=== PATIENT | female | born 1965 | race Hispanic/Latino ===

== ENCOUNTER 2017-12-23 15:39 | Inpatient (IN) | payer BC ==
[2017-12-23] VITALS (18 sets, daily range): BP systolic 112–158; BP diastolic 41–84
[~2017-12-23] VITALS: Ht 157.5 cm; Wt 72.5 kg
[2017-12-23] MEDS ORDERED: ONDANSETRON HCL MDV 20ML 2 MG/ML VIAL IVP PRN (17:15)
[2017-12-23] MEDS ORDERED: ACETAMINOPHEN 325 MG TAB PO PRN (17:15)
[2017-12-23] MEDS ORDERED: GLUCAGON 1MG KIT 1 MG ML IM PRN (17:15)
[2017-12-23] MEDS ORDERED: DEXTROSE 50%-WATER 50 ML DISP.SYRIN IV PRN (17:15)
[2017-12-23] MEDS ORDERED: INSU100V12 SQ (17:36)
[2017-12-23] MEDS ORDERED: COSO10OS OD (17:36)
[2017-12-23] MEDS ORDERED: OMEP40CA37 PO (17:36)
[2017-12-23] MEDS ORDERED: ATOR40TA71 PO (17:36)
[2017-12-23] MEDS ORDERED: INSU100I3 SQ (17:36)
[2017-12-23] MEDS ORDERED: IRON1CAP28 PO (17:36)
[2017-12-23] MEDS ORDERED: NEPT50 PO (17:36)
[2017-12-23] MEDS ORDERED: SODI15DR8 OS (17:36)
[2017-12-23] MEDS ORDERED: CARV12.511 PO (17:36)
[2017-12-23] MEDS ORDERED: PREDAOS OS (17:36)
[2017-12-23] MEDS ORDERED: XALA2.5OS OD (17:36)
[2017-12-23] MEDS ORDERED: FURO40TA5 PO (17:36)
[2017-12-23] MEDS ORDERED: DOCU-116 PO (17:36)
[2017-12-23] MEDS ORDERED: LISI-613 PO (17:36)
[2017-12-23 18:11] LABS: BASOPHILS % (AUTO) 0.4 % (0.0-5.0); HEMATOCRIT 26.4 % (36-48); LYMPHOCYTES % (AUTO) 10.1 % (21.0-51.0); MEAN CORPUSCULAR HEMOGLOBIN 29.9 pg (27.0-33.0); MEAN CORPUSCULAR HGB CONC 31.7 g/dL (32.0-36.0); MEAN CORPUSCULAR VOLUME 94.4 fL (79-99); MONOCYTES % (AUTO) 5.9 % (3.0-13.0); NEUTROPHILS % (AUTO) 83.6 % (40.0-77.0); NUCLEATED RED BLOOD CELLS 0.6 % (0.0-0.19); PLATELET COUNT (AUTO) 225 K/uL (130-400); RED CELL DISTRIBUTION WIDTH 16.9 % (11.0-15.5); WHITE BLOOD COUNT (AUTO) 7.4 K/uL (4.8-10.8)
[2017-12-23 18:19] LABS: INR 1.02 (0.85-1.15); PARTIAL THROMBOPLASTIN TIME 26.8 SEC (26.3-35.5); PROTHROMBIN TIME 10.7 SEC (9.6-11.6)
[2017-12-23 18:25] LABS: ALANINE AMINOTRANSFERASE 16 U/L (12-78); ALBUMIN 2.1 g/dL (3.5-5.0); ASPARTATE AMINOTRANSFERASE 23 U/L (10-37); BILIRUBIN,TOTAL 0.2 mg/dL (0.2-1.0); CARBON DIOXIDE 14 mmol/L (21-32); CHLORIDE 109 mmol/L (101-111); CREATININE 6.2 mg/dL (0.5-1.5); GLOMERULAR FILTR. RATE CALC 8 mL/min (>60); GLUCOSE,RANDOM 140 mg/dL (70-105); PHOSPHORUS 8.9 mg/dL (2.5-4.9); POTASSIUM 4.9 mmol/L (3.5-5.1); SODIUM SERUM 143 mmol/L (136-145); TOTAL PROTEIN, SERUM 5.8 g/dL (6.0-8.3)
[2017-12-23 18:29] LABS: UREA NITROGEN, BLOOD 126 mg/dL (7-18)
[2017-12-23 18:33] LABS: CREATINE KINASE MB 35.8 ng/mL (0.5-3.6); TROPONIN I 0.15 ng/mL (0.00-0.06)
[2017-12-23 18:36] LABS: % IRON SATURATION 18.5 % (22-44); FERRITIN 201 ng/mL (15-150); IRON, SERUM 45 mcg/dL (50-170); TOTAL IRON BINDING CAPACITY 243 mcg/dL (250-450)
[2017-12-23 18:53] LABS: RETICULOCYTE % (AUTO) 2.75 % (0.42-2.23)
[2017-12-23] MEDS ORDERED: VANCOMYCIN PROTOCOL PER PHARMACY IV SCH (19:45)
[2017-12-23] MEDS: ASPIRIN 325MG EC TAB 325 MG TABLET.DR PO SCH (19:49)
[2017-12-23] MEDS ORDERED: VANCOMYCIN 1.25 GM in SODIUM CHLORIDE 0.9% 250 ML IV SCH (20:00)
[2017-12-23] MEDS ORDERED: COMPOUND IV REFRIGERATED 1 EACH IVSOLN MISC PRN (20:15)
[2017-12-23] MEDS: FOLIC ACID/VITAMIN B COMP W-C 1 MG CAPSULE PO SCH (20:51)
[2017-12-23] MEDS: SODIUM BICARBONATE 650 MG TAB PO SCH (20:52)
[2017-12-23] MEDS: DOCUSATE SODIUM 100 MG CAP PO SCH (20:52)
[2017-12-23] MEDS: INSULIN HUMULIN R 100 UNIT/ML 3ML SQ SCH (21:00)
[2017-12-23] MEDS: METHAZOLAMIDE 50 MG PO SCH (21:00)
[2017-12-23] MEDS: DORZOLAMIDE HCL/TIMOLOL MALEAT DROPS 10 ML BOTTLE OD SCH (21:22)
[2017-12-23] MEDS: LATANOPROST 2.5 ML DROPS OD SCH (21:32)
[2017-12-23 21:35] LABS: APPEARANCE,URINE Turbid (CLEAR); BILIRUBIN,URINE Small (NEGATIVE); COLOR,URINE Dark Yellow (YELLOW); GLUCOSE, URINE (UA) TRACE mg/dL (NEGATIVE); KETONES,URINE Trace mg/dL (NEGATIVE); LEUKOCYTE ESTERASE ,URINE Negative (NEGATIVE); NITRATE,URINE Negative (NEGATIVE); OCCULT BLOOD,URINE Negative (NEGATIVE); PROTEIN,URINE >=1000 (NEGATIVE); UROBILINOGEN,URINE 0.2 mg/dL (0.2-1.0)
[2017-12-23] MEDS: PREDNISOLONE ACETATE 1% 5ML DROPS.SUSP OS SCH (21:40)
[2017-12-23] MEDS: FUROSEMIDE 10 MG/ML 4ML VIAL IV SCH (21:43)
[2017-12-23] MEDS: ZOSYN 3.375GM+NS 50ML 50 ML IV SCH (21:47)
[2017-12-23] MEDS: SODIUM CHLORIDE 5% 15 ML OPHTH SOLN OS SCH (21:47)
[2017-12-23 21:55] LABS: AMORPHOUS SEDIMENT,UR Moderate /LPF (None Seen); BACTERIA,URINE Many /HPF (None Seen); RBC,URINE None Seen /HPF (0-1)
[2017-12-24] VITALS (32 sets, daily range): BP systolic 102–189; BP diastolic 37–102
[2017-12-24 00:22] LABS: CREATINE KINASE MB 33.1 ng/mL (0.5-3.6); TROPONIN I 0.16 ng/mL (0.00-0.06)
[2017-12-24 04:47] LABS: HEMATOCRIT 27.1 % (36-48); MEAN CORPUSCULAR HEMOGLOBIN 29.7 pg (27.0-33.0); MEAN CORPUSCULAR HGB CONC 30.8 g/dL (32.0-36.0); MEAN CORPUSCULAR VOLUME 96.6 fL (79-99); NUCLEATED RED BLOOD CELLS 0.7 % (0.0-0.19); PLATELET COUNT (AUTO) 204 K/uL (130-400); RED BLOOD CELL COUNT(AUTO) 2.81 MIL/uL (4.00-5.50); RED CELL DISTRIBUTION WIDTH 17.6 % (11.0-15.5); WHITE BLOOD COUNT (AUTO) 10.4 K/uL (4.8-10.8)
[2017-12-24 04:53] LABS: CREATININE 6.2 mg/dL (0.5-1.5); MAGNESIUM 2.3 mg/dL (1.80-2.40); PHOSPHORUS 9.1 mg/dL (2.5-4.9); URIC ACID 8.3 mg/dL (2.6-7.2)
[2017-12-24 05:13] LABS: % IRON SATURATION 15.9 % (22-44)
[2017-12-24] MEDS: DOPAMINE 800MG/D5 250ML 250 ML IV PRN (06:32)
[2017-12-24] MEDS: INSULIN HUMULIN R 100 UNIT/ML 3ML SQ SCH ×4 (06:32→20:18)
[2017-12-24] MEDS: ATORVASTATIN CALCIUM 40 MG TABLET PO SCH (08:44)
[2017-12-24] MEDS: DOCUSATE SODIUM 100 MG CAP PO SCH ×2 (08:44→19:46)
[2017-12-24] MEDS: FUROSEMIDE 10 MG/ML 4ML VIAL IV SCH ×2 (08:44→19:47)
[2017-12-24] MEDS: ZOSYN 3.375GM+NS 50ML 50 ML IV SCH ×2 (08:44→19:45)
[2017-12-24] MEDS: PANTOPRAZOLE SODIUM 40 MG TABLET.DR PO SCH (08:45)
[2017-12-24] MEDS: SODIUM BICARBONATE 650 MG TAB PO SCH ×2 (08:45→19:47)
[2017-12-24] MEDS: FOLIC ACID/VITAMIN B COMP W-C 1 MG CAPSULE PO SCH (08:45)
[2017-12-24] MEDS: ASPIRIN 325MG EC TAB 325 MG TABLET.DR PO SCH (08:45)
[2017-12-24] MEDS: IRON FUM PO SCH (09:00)
[2017-12-24] MEDS: [UNRECOGNIZED DRUG - OTHER] PO SCH (09:00)
[2017-12-24] MEDS: METHAZOLAMIDE 50 MG PO SCH ×2 (09:00→19:46)
[2017-12-24] MEDS: VIT B PO SCH (09:00)
[2017-12-24] MEDS: C NO 9 PO SCH (09:00)
[2017-12-24] MEDS: SODIUM CHLORIDE 5% 15 ML OPHTH SOLN OS SCH ×2 (09:12→19:45)
[2017-12-24] MEDS: PREDNISOLONE ACETATE 1% 5ML DROPS.SUSP OS SCH ×2 (09:12→19:46)
[2017-12-24] MEDS: LATANOPROST 2.5 ML DROPS OD SCH ×2 (09:12→19:46)
[2017-12-24] MEDS: DORZOLAMIDE HCL/TIMOLOL MALEAT DROPS 10 ML BOTTLE OD SCH ×2 (09:12→19:45)
[2017-12-24] MEDS ORDERED: RENAL DOSE IV PRN (13:30)
[2017-12-24 15:41] LABS: ABG BASE EXCESS -15.3 mmol/L (-2.0-3.0); ABG HCO3 11.6 mmol/L (21.0-28.0); ABG OXYGEN SATURATION 95.8 % (95.0-99.0); ABG PCO2 31 mmHg (32-45)
[2017-12-24] MEDS: CALCIUM ACETATE 667 MG CAPSULE PO SCH (16:45)
[2017-12-24] MEDS ORDERED: COMPOUND IV MISC 1 EACH IVSOLN MISC PRN (16:45)
[2017-12-24] MEDS: SODIUM BICARB 8.4% 50ML SYRING 200 MEQ in DEXTROSE 5%-WATER 800 ML IV SCH (17:43)
[2017-12-25] VITALS (28 sets, daily range): BP systolic 134–189; BP diastolic 47–95
[2017-12-25 04:41] LABS: HEMATOCRIT 25.4 % (36-48); MEAN CORPUSCULAR HEMOGLOBIN 29.4 pg (27.0-33.0); MEAN CORPUSCULAR HGB CONC 31.9 g/dL (32.0-36.0); MEAN CORPUSCULAR VOLUME 92.2 fL (79-99); NUCLEATED RED BLOOD CELLS 0.5 % (0.0-0.19); PLATELET COUNT (AUTO) 251 K/uL (130-400); RED BLOOD CELL COUNT(AUTO) 2.75 MIL/uL (4.00-5.50); RED CELL DISTRIBUTION WIDTH 16.9 % (11.0-15.5); WHITE BLOOD COUNT (AUTO) 10.4 K/uL (4.8-10.8)
[2017-12-25 04:48] LABS: INR 1.02 (0.85-1.15); PARTIAL THROMBOPLASTIN TIME 21.2 SEC (26.3-35.5); PROTHROMBIN TIME 10.7 SEC (9.6-11.6)
[2017-12-25] MEDS: SODIUM BICARB 8.4% 50ML SYRING 200 MEQ in DEXTROSE 5%-WATER 800 ML IV SCH ×2 (04:51→21:33)
[2017-12-25 04:52] LABS: CREATININE 6.6 mg/dL (0.5-1.5)
[2017-12-25] MEDS: INSULIN HUMULIN R 100 UNIT/ML 3ML SQ SCH ×4 (05:29→21:00)
[2017-12-25] MEDS: ZOSYN 3.375GM+NS 50ML 50 ML IV SCH ×2 (08:09→21:33)
[2017-12-25] MEDS: FUROSEMIDE 10 MG/ML 4ML VIAL IV SCH ×2 (08:11→21:32)
[2017-12-25] MEDS: SODIUM BICARBONATE 650 MG TAB PO SCH ×2 (08:18→21:32)
[2017-12-25] MEDS: DOCUSATE SODIUM 100 MG CAP PO SCH ×2 (08:18→21:00)
[2017-12-25] MEDS: PANTOPRAZOLE SODIUM 40 MG TABLET.DR PO SCH (08:18)
[2017-12-25] MEDS: FOLIC ACID/VITAMIN B COMP W-C 1 MG CAPSULE PO SCH (08:18)
[2017-12-25] MEDS: ATORVASTATIN CALCIUM 40 MG TABLET PO SCH (08:18)
[2017-12-25] MEDS: CALCIUM ACETATE 667 MG CAPSULE PO SCH ×3 (08:19→17:00)
[2017-12-25] MEDS: ASPIRIN 325MG EC TAB 325 MG TABLET.DR PO SCH (08:20)
[2017-12-25] MEDS: SODIUM CHLORIDE 5% 15 ML OPHTH SOLN OS SCH ×2 (08:22→21:00)
[2017-12-25] MEDS: DORZOLAMIDE HCL/TIMOLOL MALEAT DROPS 10 ML BOTTLE OD SCH ×2 (08:22→21:43)
[2017-12-25] MEDS: METHAZOLAMIDE 50 MG PO SCH ×2 (08:23→21:42)
[2017-12-25] MEDS: PREDNISOLONE ACETATE 1% 5ML DROPS.SUSP OS SCH ×2 (08:23→21:34)
[2017-12-25] MEDS: LATANOPROST 2.5 ML DROPS OD SCH ×2 (08:23→21:38)
[2017-12-25] MEDS: IRON SUCROSE COMPLEX 100 MG in SODIUM CHLORIDE 0.9% 50 ML IV SCH (08:39)
[2017-12-25] MEDS: VIT B PO SCH (09:00)
[2017-12-25] MEDS: IRON FUM PO SCH (09:00)
[2017-12-25] MEDS: C NO 9 PO SCH (09:00)
[2017-12-25] MEDS: [UNRECOGNIZED DRUG - OTHER] PO SCH (09:00)
[2017-12-25] MEDS ORDERED: METOLAZONE 2.5 MG TABLET PO SCH (13:15)
[2017-12-25] MEDS: DOPAMINE 800MG/D5 250ML 250 ML IV PRN (15:07)
[2017-12-25 18:12] LABS: CREATININE,SERUM FOR CRCL 6.6 mg/dL (0.6-1.3)
[2017-12-25 18:26] LABS: COLLECTION PERIOD,URINE 24 HR; TOTAL VOLUME 24HRS,URINE 400 mL; TPROTEIN TIMED,URINE 525 mg/dL; TPROTEIN U,24HR CALC 2100 mg/24HR (0-165)
[2017-12-26] VITALS (22 sets, daily range): BP systolic 143–190; BP diastolic 59–114
[2017-12-26 04:14] LABS: HEMATOCRIT 22.9 % (36-48); MEAN CORPUSCULAR HEMOGLOBIN 29.7 pg (27.0-33.0); MEAN CORPUSCULAR HGB CONC 32.8 g/dL (32.0-36.0); MEAN CORPUSCULAR VOLUME 90.7 fL (79-99); NUCLEATED RED BLOOD CELLS 0.3 % (0.0-0.19); PLATELET COUNT (AUTO) 198 K/uL (130-400); RED BLOOD CELL COUNT(AUTO) 2.53 MIL/uL (4.00-5.50); RED CELL DISTRIBUTION WIDTH 16.7 % (11.0-15.5); WHITE BLOOD COUNT (AUTO) 10.5 K/uL (4.8-10.8)
[2017-12-26 04:26] LABS: CREATININE 6.4 mg/dL (0.5-1.5); POTASSIUM 4.6 mmol/L (3.5-5.1)
[2017-12-26] MEDS: SODIUM BICARB 8.4% 50ML SYRING 200 MEQ in DEXTROSE 5%-WATER 800 ML IV SCH (05:00)
[2017-12-26 06:29] LABS: CREATININE 6.4 mg/dL (0.5-1.5); POTASSIUM 4.3 mmol/L (3.5-5.1)
[2017-12-26] MEDS: INSULIN HUMULIN R 100 UNIT/ML 3ML SQ SCH ×4 (07:30→20:30)
[2017-12-26] MEDS: DOCUSATE SODIUM 100 MG CAP PO SCH ×2 (08:04→21:00)
[2017-12-26] MEDS: ZOSYN 3.375GM+NS 50ML 50 ML IV SCH ×2 (08:04→20:31)
[2017-12-26] MEDS: PANTOPRAZOLE SODIUM 40 MG TABLET.DR PO SCH (08:04)
[2017-12-26] MEDS: FOLIC ACID/VITAMIN B COMP W-C 1 MG CAPSULE PO SCH (08:04)
[2017-12-26] MEDS: FUROSEMIDE 10 MG/ML 4ML VIAL IV SCH ×2 (08:04→20:32)
[2017-12-26] MEDS: ATORVASTATIN CALCIUM 40 MG TABLET PO SCH (08:04)
[2017-12-26] MEDS: ASPIRIN 325MG EC TAB 325 MG TABLET.DR PO SCH (08:04)
[2017-12-26] MEDS: SODIUM BICARBONATE 650 MG TAB PO SCH ×2 (08:04→20:32)
[2017-12-26] MEDS: CALCIUM ACETATE 667 MG CAPSULE PO SCH ×3 (08:04→16:39)
[2017-12-26] MEDS: DORZOLAMIDE HCL/TIMOLOL MALEAT DROPS 10 ML BOTTLE OD SCH ×2 (08:17→20:51)
[2017-12-26] MEDS: SODIUM CHLORIDE 5% 15 ML OPHTH SOLN OS SCH ×2 (08:17→21:00)
[2017-12-26] MEDS: PREDNISOLONE ACETATE 1% 5ML DROPS.SUSP OS SCH ×2 (08:17→20:40)
[2017-12-26] MEDS: LATANOPROST 2.5 ML DROPS OD SCH ×2 (08:17→20:48)
[2017-12-26] MEDS: VIT B PO SCH (08:18)
[2017-12-26] MEDS: C NO 9 PO SCH (08:18)
[2017-12-26] MEDS: METHAZOLAMIDE 50 MG PO SCH ×2 (08:18→20:38)
[2017-12-26] MEDS: [UNRECOGNIZED DRUG - OTHER] PO SCH (08:18)
[2017-12-26] MEDS: IRON FUM PO SCH (08:18)
[2017-12-26] MEDS: IRON SUCROSE COMPLEX 100 MG in SODIUM CHLORIDE 0.9% 50 ML IV SCH (08:23)
[2017-12-26 16:42] LABS: BASOPHILS % (AUTO) 0.4 % (0.0-5.0); EOSINOPHILS % (AUTO) 1.8 % (0.0-8.0); LYMPHOCYTES % (AUTO) 12.2 % (21.0-51.0); MEAN CORPUSCULAR HEMOGLOBIN 31.6 pg (27.0-33.0); MEAN CORPUSCULAR HGB CONC 34.7 g/dL (32.0-36.0); MEAN CORPUSCULAR VOLUME 90.9 fL (79-99); MONOCYTES % (AUTO) 7.6 % (3.0-13.0); NUCLEATED RED BLOOD CELLS 0.2 % (0.0-0.19); PLATELET COUNT (AUTO) 207 K/uL (130-400); RED BLOOD CELL COUNT(AUTO) 2.42 MIL/uL (4.00-5.50); RED CELL DISTRIBUTION WIDTH 16.6 % (11.0-15.5); WHITE BLOOD COUNT (AUTO) 10.4 K/uL (4.8-10.8)
[2017-12-26] MEDS: HYDRALAZINE HCL 20 MG/ML VIAL IV PRN (21:03)
[2017-12-27] VITALS (24 sets, daily range): BP systolic 153–180; BP diastolic 52–83
[2017-12-27 03:45] LABS: HEMATOCRIT 23.2 % (36-48); MEAN CORPUSCULAR HEMOGLOBIN 30.7 pg (27.0-33.0); MEAN CORPUSCULAR HGB CONC 33.6 g/dL (32.0-36.0); MEAN CORPUSCULAR VOLUME 91.4 fL (79-99); NUCLEATED RED BLOOD CELLS 0.1 % (0.0-0.19); PLATELET COUNT (AUTO) 216 K/uL (130-400); RED BLOOD CELL COUNT(AUTO) 2.54 MIL/uL (4.00-5.50); RED CELL DISTRIBUTION WIDTH 16.6 % (11.0-15.5); WHITE BLOOD COUNT (AUTO) 9.9 K/uL (4.8-10.8)
[2017-12-27 03:54] LABS: INR 1.08 (0.85-1.15); PARTIAL THROMBOPLASTIN TIME 27.5 SEC (26.3-35.5); PROTHROMBIN TIME 11.3 SEC (9.6-11.6)
[2017-12-27 03:58] LABS: CREATININE 6.1 mg/dL (0.5-1.5); POTASSIUM 3.9 mmol/L (3.5-5.1)
[2017-12-27 04:26] LABS: EOSINOPHILS % (MANUAL) 2 % (1-6); LYMPHOCYTES % (MANUAL) 8 % (22-44); MAN.DIFF COMMENT-IMPRESSION MANUAL DIFFERENTIAL; MONOCYTES % (MANUAL) 2 % (2-9); PLATELET MORPHOLOGY COMMENT ADEQUATE; SEGMENTED NEUTROPHILS % 88 % (40-70)
[2017-12-27] MEDS: INSULIN HUMULIN R 100 UNIT/ML 3ML SQ SCH ×4 (05:59→20:42)
[2017-12-27] MEDS: CALCIUM ACETATE 667 MG CAPSULE PO SCH ×3 (08:00→17:44)
[2017-12-27] MEDS: VIT B PO SCH (09:00)
[2017-12-27] MEDS: IRON FUM PO SCH (09:00)
[2017-12-27] MEDS: SODIUM BICARBONATE 650 MG TAB PO SCH ×2 (09:00→20:12)
[2017-12-27] MEDS: [UNRECOGNIZED DRUG - OTHER] PO SCH (09:00)
[2017-12-27] MEDS: C NO 9 PO SCH (09:00)
[2017-12-27] MEDS: METHAZOLAMIDE 50 MG PO SCH ×2 (09:00→20:14)
[2017-12-27] MEDS: DOCUSATE SODIUM 100 MG CAP PO SCH ×2 (09:00→20:12)
[2017-12-27] MEDS: ASPIRIN 325MG EC TAB 325 MG TABLET.DR PO SCH (09:00)
[2017-12-27] MEDS: IRON SUCROSE COMPLEX 100 MG in SODIUM CHLORIDE 0.9% 50 ML IV SCH (09:06)
[2017-12-27] MEDS: HYDRALAZINE HCL 20 MG/ML VIAL IV PRN (09:07)
[2017-12-27] MEDS: ZOSYN 3.375GM+NS 50ML 50 ML IV SCH (09:07)
[2017-12-27] MEDS: PREDNISOLONE ACETATE 1% 5ML DROPS.SUSP OS SCH ×2 (09:14→20:13)
[2017-12-27] MEDS: DORZOLAMIDE HCL/TIMOLOL MALEAT DROPS 10 ML BOTTLE OD SCH ×2 (09:14→20:14)
[2017-12-27] MEDS: SODIUM CHLORIDE 5% 15 ML OPHTH SOLN OS SCH ×2 (09:15→20:13)
[2017-12-27] MEDS: LATANOPROST 2.5 ML DROPS OD SCH ×2 (09:15→20:13)
[2017-12-27] MEDS: FUROSEMIDE 10 MG/ML 4ML VIAL IV SCH ×2 (09:30→20:12)
[2017-12-27] MEDS ORDERED: EPOETIN ALFA 20,000 UNIT/ML VIAL SQ SCH ×2 (10:00→17:15)
[2017-12-27] MEDS ORDERED: SODIUM BICARB 50MEQ 50ML VIAL ONE (12:54)
[2017-12-27] MEDS ORDERED: LIDOCAINE HCL 2% 20ML ONE (12:55)
[2017-12-27 15:25] LABS: HEMATOCRIT 22.6 % (36-48)
[2017-12-27 15:37] LABS: HEMOGLOBIN A1C 6.9 % (4.0-6.0)
[2017-12-27 15:41] LABS: ALBUMIN 1.8 g/dL (3.5-5.0); CREATININE 5.3 mg/dL (0.5-1.5)
[2017-12-27] MEDS ORDERED: 0.9% SODIUM CHLORIDE 250 ML IV BAG IV PRN (16:00)
[2017-12-27] MEDS ORDERED: ALBUMIN (HUMAN) 25% 100 ML IV PRN (16:00)
[2017-12-27] MEDS: HEPARIN SODIUM 5000UNIT/ML 1ML VIAL IJ PRN (16:18)
[2017-12-27] MEDS: SODIUM CHLORIDE 0.9% 1000ML 1,000 ML IV PRN (16:19)
[2017-12-27] MEDS: ATORVASTATIN CALCIUM 40 MG TABLET PO SCH (17:43)
[2017-12-27] MEDS: PANTOPRAZOLE SODIUM 40 MG TABLET.DR PO SCH (17:44)
[2017-12-27] MEDS: FOLIC ACID/VITAMIN B COMP W-C 1 MG CAPSULE PO SCH (17:44)
[2017-12-27] MEDS: HYDRALAZINE HCL 25 MG TABLET PO SCH ×2 (17:44→17:48)
[2017-12-28] VITALS (11 sets, daily range): BP systolic 139–172; BP diastolic 44–72
[2017-12-28] MEDS: HYDRALAZINE HCL 25 MG TABLET PO SCH ×4 (00:04→19:39)
[2017-12-28 04:02] LABS: HEMATOCRIT 21.7 % (36-48); MEAN CORPUSCULAR HEMOGLOBIN 30.1 pg (27.0-33.0); MEAN CORPUSCULAR VOLUME 91.3 fL (79-99); NUCLEATED RED BLOOD CELLS 0.1 % (0.0-0.19); PLATELET COUNT (AUTO) 190 K/uL (130-400); RED BLOOD CELL COUNT(AUTO) 2.37 MIL/uL (4.00-5.50); RED CELL DISTRIBUTION WIDTH 16.9 % (11.0-15.5); WHITE BLOOD COUNT (AUTO) 8.5 K/uL (4.8-10.8)
[2017-12-28 04:16] LABS: CREATININE 4.7 mg/dL (0.5-1.5); POTASSIUM 3.4 mmol/L (3.5-5.1)
[2017-12-28] MEDS ORDERED: HYDRALAZINE HCL 25 MG TABLET ONE (05:21)
[2017-12-28] MEDS: INSULIN HUMULIN R 100 UNIT/ML 3ML SQ SCH ×4 (05:23→19:41)
[2017-12-28] MEDS: SODIUM BICARBONATE 650 MG TAB PO SCH ×2 (08:44→19:40)
[2017-12-28] MEDS: ATORVASTATIN CALCIUM 40 MG TABLET PO SCH (08:44)
[2017-12-28] MEDS: FOLIC ACID/VITAMIN B COMP W-C 1 MG CAPSULE PO SCH ×2 (08:44→09:00)
[2017-12-28] MEDS: PANTOPRAZOLE SODIUM 40 MG TABLET.DR PO SCH (08:44)
[2017-12-28] MEDS: CALCIUM ACETATE 667 MG CAPSULE PO SCH ×3 (08:44→17:31)
[2017-12-28] MEDS: LATANOPROST 2.5 ML DROPS OD SCH ×2 (08:45→19:41)
[2017-12-28] MEDS: SODIUM CHLORIDE 5% 15 ML OPHTH SOLN OS SCH ×2 (08:45→19:40)
[2017-12-28] MEDS: PREDNISOLONE ACETATE 1% 5ML DROPS.SUSP OS SCH ×2 (08:45→19:41)
[2017-12-28] MEDS: DORZOLAMIDE HCL/TIMOLOL MALEAT DROPS 10 ML BOTTLE OD SCH ×2 (08:45→19:40)
[2017-12-28] MEDS: DOCUSATE SODIUM 100 MG CAP PO SCH ×2 (09:00→19:40)
[2017-12-28] MEDS: [UNRECOGNIZED DRUG - OTHER] PO SCH (09:00)
[2017-12-28] MEDS: IRON FUM PO SCH (09:00)
[2017-12-28] MEDS: METHAZOLAMIDE 50 MG PO SCH ×2 (09:00→19:40)
[2017-12-28] MEDS: C NO 9 PO SCH (09:00)
[2017-12-28] MEDS: VIT B PO SCH (09:00)
[2017-12-28] MEDS: IRON SUCROSE COMPLEX 100 MG in SODIUM CHLORIDE 0.9% 50 ML IV SCH (09:40)
[2017-12-28] MEDS: ASPIRIN 325MG EC TAB 325 MG TABLET.DR PO SCH (10:04)
[2017-12-28] MEDS: HYDRALAZINE HCL 20 MG/ML VIAL IV PRN ×2 (10:07→21:08)
[2017-12-28] MEDS ORDERED: EPOETIN ALFA 2,000 UNIT/ML VIAL SQ SCH (14:00)
[2017-12-28] MEDS: HEPARIN SODIUM 5000UNIT/ML 1ML VIAL IJ PRN (18:01)
[2017-12-28] MEDS: SODIUM CHLORIDE 0.9% 1000ML 1,000 ML IV PRN (18:02)
[2017-12-29] VITALS (7 sets, daily range): BP systolic 155–181; BP diastolic 52–69
[2017-12-29] MEDS: HYDRALAZINE HCL 25 MG TABLET PO SCH ×4 (00:04→17:16)
[2017-12-29 05:04] LABS: HEMATOCRIT 24.3 % (36-48); MEAN CORPUSCULAR HEMOGLOBIN 30.8 pg (27.0-33.0); MEAN CORPUSCULAR HGB CONC 33.8 g/dL (32.0-36.0); PLATELET COUNT (AUTO) 172 K/uL (130-400); RED BLOOD CELL COUNT(AUTO) 2.67 MIL/uL (4.00-5.50); RED CELL DISTRIBUTION WIDTH 16.3 % (11.0-15.5); WHITE BLOOD COUNT (AUTO) 8.9 K/uL (4.8-10.8)
[2017-12-29 05:15] LABS: CREATININE 3.6 mg/dL (0.5-1.5); MAGNESIUM 1.9 mg/dL (1.80-2.40); PHOSPHORUS 4.3 mg/dL (2.5-4.9)
[2017-12-29 05:17] LABS: EOSINOPHILS % (MANUAL) 1 % (1-6); LYMPHOCYTES % (MANUAL) 10 % (22-44); MAN.DIFF COMMENT-IMPRESSION MANUAL DIFFERENTIAL; MONOCYTES % (MANUAL) 4 % (2-9); SEGMENTED NEUTROPHILS % 85 % (40-70)
[2017-12-29 05:19] LABS: PLATELET MORPHOLOGY COMMENT ADEQUATE
[2017-12-29] MEDS: INSULIN HUMULIN R 100 UNIT/ML 3ML SQ SCH ×4 (06:06→21:26)
[2017-12-29 07:29] LABS: HEPATITIS Bs ANTIGEN SCREEN P Negative (Negative)
[2017-12-29] MEDS: ATORVASTATIN CALCIUM 40 MG TABLET PO SCH (08:36)
[2017-12-29] MEDS: PANTOPRAZOLE SODIUM 40 MG TABLET.DR PO SCH (08:36)
[2017-12-29] MEDS: IRON SUCROSE COMPLEX 100 MG in SODIUM CHLORIDE 0.9% 50 ML IV SCH (08:36)
[2017-12-29] MEDS: ASPIRIN 325MG EC TAB 325 MG TABLET.DR PO SCH (08:36)
[2017-12-29] MEDS: CALCIUM ACETATE 667 MG CAPSULE PO SCH ×3 (08:36→17:16)
[2017-12-29] MEDS: SODIUM BICARBONATE 650 MG TAB PO SCH ×2 (08:36→21:15)
[2017-12-29] MEDS: FOLIC ACID/VITAMIN B COMP W-C 1 MG CAPSULE PO SCH ×2 (08:36→09:00)
[2017-12-29] MEDS: DOCUSATE SODIUM 100 MG CAP PO SCH ×2 (08:36→21:00)
[2017-12-29] MEDS: IRON FUM PO SCH (09:00)
[2017-12-29] MEDS: VIT B PO SCH (09:00)
[2017-12-29] MEDS: [UNRECOGNIZED DRUG - OTHER] PO SCH (09:00)
[2017-12-29] MEDS: SODIUM CHLORIDE 5% 15 ML OPHTH SOLN OS SCH ×2 (09:00→21:16)
[2017-12-29] MEDS: METHAZOLAMIDE 50 MG PO SCH ×2 (09:00→21:15)
[2017-12-29] MEDS: DORZOLAMIDE HCL/TIMOLOL MALEAT DROPS 10 ML BOTTLE OD SCH ×2 (09:00→21:16)
[2017-12-29] MEDS: LATANOPROST 2.5 ML DROPS OD SCH ×2 (09:00→21:18)
[2017-12-29] MEDS: PREDNISOLONE ACETATE 1% 5ML DROPS.SUSP OS SCH ×2 (09:00→21:18)
[2017-12-29] MEDS: C NO 9 PO SCH (09:00)
[2017-12-30] MEDS: HYDRALAZINE HCL 25 MG TABLET PO SCH ×5 (00:02→23:40)
[2017-12-30 04:05] VITALS: BP 156/68
[2017-12-30] MEDS: SODIUM CHLORIDE 0.9% 1000ML 1,000 ML IV PRN (04:49)
[2017-12-30 05:12] LABS: HEMATOCRIT 25.1 % (36-48); MEAN CORPUSCULAR HEMOGLOBIN 30.6 pg (27.0-33.0); MEAN CORPUSCULAR HGB CONC 33.4 g/dL (32.0-36.0); MEAN CORPUSCULAR VOLUME 91.6 fL (79-99); NUCLEATED RED BLOOD CELLS 0.1 % (0.0-0.19); PLATELET COUNT (AUTO) 176 K/uL (130-400); RED BLOOD CELL COUNT(AUTO) 2.74 MIL/uL (4.00-5.50); RED CELL DISTRIBUTION WIDTH 16.5 % (11.0-15.5); WHITE BLOOD COUNT (AUTO) 9.1 K/uL (4.8-10.8)
[2017-12-30 05:22] LABS: CREATININE 3.8 mg/dL (0.5-1.5); POTASSIUM 3.2 mmol/L (3.5-5.1)
[2017-12-30 07:00] VITALS: BP 163/66
[2017-12-30] MEDS: INSULIN HUMULIN R 100 UNIT/ML 3ML SQ SCH ×4 (07:30→21:00)
[2017-12-30] MEDS: CALCIUM ACETATE 667 MG CAPSULE PO SCH ×3 (08:52→17:13)
[2017-12-30] MEDS: ATORVASTATIN CALCIUM 40 MG TABLET PO SCH (08:53)
[2017-12-30] MEDS: FOLIC ACID/VITAMIN B COMP W-C 1 MG CAPSULE PO SCH ×2 (08:53)
[2017-12-30] MEDS: PANTOPRAZOLE SODIUM 40 MG TABLET.DR PO SCH (08:54)
[2017-12-30] MEDS: [UNRECOGNIZED DRUG - OTHER] PO SCH (08:54)
[2017-12-30] MEDS: DOCUSATE SODIUM 100 MG CAP PO SCH ×2 (08:54→21:00)
[2017-12-30] MEDS: C NO 9 PO SCH (08:54)
[2017-12-30] MEDS: IRON FUM PO SCH (08:54)
[2017-12-30] MEDS: ASPIRIN 325MG EC TAB 325 MG TABLET.DR PO SCH (08:54)
[2017-12-30] MEDS: SODIUM BICARBONATE 650 MG TAB PO SCH ×2 (08:54→23:39)
[2017-12-30] MEDS: VIT B PO SCH (08:54)
[2017-12-30] MEDS: METHAZOLAMIDE 50 MG PO SCH ×2 (08:55→23:42)
[2017-12-30] MEDS: SODIUM CHLORIDE 5% 15 ML OPHTH SOLN OS SCH ×2 (08:58→23:42)
[2017-12-30] MEDS: PREDNISOLONE ACETATE 1% 5ML DROPS.SUSP OS SCH ×2 (08:58→23:41)
[2017-12-30] MEDS: LATANOPROST 2.5 ML DROPS OD SCH ×2 (08:58→23:41)
[2017-12-30] MEDS: DORZOLAMIDE HCL/TIMOLOL MALEAT DROPS 10 ML BOTTLE OD SCH ×2 (08:58→23:42)
[2017-12-30] MEDS: IRON SUCROSE COMPLEX 100 MG in SODIUM CHLORIDE 0.9% 50 ML IV SCH (09:40)
[2017-12-30 12:00] VITALS: BP 188/68
[2017-12-30 16:15] VITALS: BP 175/77
[2017-12-30 19:30] VITALS: BP 159/64
[2017-12-30] MEDS: LISINOPRIL 10 MG TABLET PO SCH (23:39)
[2017-12-30 23:51] VITALS: BP 139/62
[2017-12-31 04:20] VITALS: BP 130/68
[2017-12-31] MEDS: INSULIN HUMULIN R 100 UNIT/ML 3ML SQ SCH ×3 (05:08→16:30)
[2017-12-31] MEDS: HYDRALAZINE HCL 25 MG TABLET PO SCH ×3 (06:00→18:16)
[2017-12-31 08:00] VITALS: BP 172/68
[2017-12-31] MEDS: SODIUM CHLORIDE 5% 15 ML OPHTH SOLN OS SCH (08:57)
[2017-12-31] MEDS: PREDNISOLONE ACETATE 1% 5ML DROPS.SUSP OS SCH (08:58)
[2017-12-31] MEDS: DORZOLAMIDE HCL/TIMOLOL MALEAT DROPS 10 ML BOTTLE OD SCH (08:58)
[2017-12-31] MEDS: LATANOPROST 2.5 ML DROPS OD SCH (08:58)
[2017-12-31] MEDS: CALCIUM ACETATE 667 MG CAPSULE PO SCH ×3 (08:59→18:16)
[2017-12-31] MEDS: ATORVASTATIN CALCIUM 40 MG TABLET PO SCH (08:59)
[2017-12-31] MEDS: FOLIC ACID/VITAMIN B COMP W-C 1 MG CAPSULE PO SCH (08:59)
[2017-12-31] MEDS: PANTOPRAZOLE SODIUM 40 MG TABLET.DR PO SCH (08:59)
[2017-12-31] MEDS: ASPIRIN 325MG EC TAB 325 MG TABLET.DR PO SCH (08:59)
[2017-12-31] MEDS: SODIUM BICARBONATE 650 MG TAB PO SCH (08:59)
[2017-12-31] MEDS: IRON FUM PO SCH (09:00)
[2017-12-31] MEDS: [UNRECOGNIZED DRUG - OTHER] PO SCH (09:00)
[2017-12-31] MEDS: C NO 9 PO SCH (09:00)
[2017-12-31] MEDS: VIT B PO SCH (09:00)
[2017-12-31] MEDS: LISINOPRIL 10 MG TABLET PO SCH (09:00)
[2017-12-31] MEDS: DOCUSATE SODIUM 100 MG CAP PO SCH (09:00)
[2017-12-31] MEDS: METHAZOLAMIDE 50 MG PO SCH (09:04)
[2017-12-31 11:41] VITALS: BP_SYST 118; BP_SYST 178; BP_DIAS 76
[2017-12-31] MEDS: IRON SUCROSE COMPLEX 100 MG in SODIUM CHLORIDE 0.9% 50 ML IV SCH (12:08)
[2017-12-31] MEDS ORDERED: HYDR25 PO (15:51)
[2017-12-31] MEDS ORDERED: LISI10TA7 PO (15:51)
[2017-12-31 16:00] VITALS: BP 167/71
[2017-12-31 19:10] VITALS: BP 144/57
== END 2017-12-31 20:10 | disposition home or self-care (01) | DRG 871 ==
LOC: 2BH 16:45 → 3BH 12-28 20:39
PROVIDERS: ADMIT Internal Medicine; ATTEND Internal Medicine
PROC: 0JH63XZ Insertion of Tunneled Vascular Access Device into Chest Subcutaneous Tissue and Fascia, Percutaneous Approach (ICD-10-PCS; principal; 2017-12-27)
PROC: 02H633Z Insertion of Infusion Device into Right Atrium, Percutaneous Approach (ICD-10-PCS; 2017-12-27)
PROC: B244ZZZ Ultrasonography of Right Heart (ICD-10-PCS; 2017-12-27)
PROC: 30233N1 Transfusion of Nonautologous Red Blood Cells into Peripheral Vein, Percutaneous Approach (ICD-10-PCS; 2017-12-27)
PROC: 5A1D70Z Performance of Urinary Filtration, Intermittent, Less than 6 Hours Per Day (ICD-10-PCS; 2017-12-27)
PROC: 5A1D70Z Performance of Urinary Filtration, Intermittent, Less than 6 Hours Per Day (ICD-10-PCS; 2017-12-28)
PROC: 5A1D70Z Performance of Urinary Filtration, Intermittent, Less than 6 Hours Per Day (ICD-10-PCS; 2017-12-30)
PROC: 5A1D70Z Performance of Urinary Filtration, Intermittent, Less than 6 Hours Per Day (ICD-10-PCS; 2017-12-31)
DX: A41.9 Sepsis, unspecified organism (principal); N18.6 End stage renal disease; R65.21 Severe sepsis with septic shock; R57.0 Cardiogenic shock; I44.2 Atrioventricular block, complete; J90 Pleural effusion, not elsewhere classified; N17.9 Acute kidney failure, unspecified; E46 Unspecified protein-calorie malnutrition; E87.2 Acidosis; I12.0 Hypertensive chronic kidney disease with stage 5 chronic kidney disease or end stage renal disease; E87.70 Fluid overload, unspecified; H54.8 Legal blindness, as defined in USA; D63.8 Anemia in other chronic diseases classified elsewhere; E11.21 Type 2 diabetes mellitus with diabetic nephropathy; E03.9 Hypothyroidism, unspecified; E11.22 Type 2 diabetes mellitus with diabetic chronic kidney disease; E11.319 Type 2 diabetes mellitus with unspecified diabetic retinopathy without macular edema; E11.51 Type 2 diabetes mellitus with diabetic peripheral angiopathy without gangrene; E78.5 Hyperlipidemia, unspecified; E83.39 Other disorders of phosphorus metabolism; E87.6 Hypokalemia; H40.9 Unspecified glaucoma; I80.8 Phlebitis and thrombophlebitis of other sites; K21.9 Gastro-esophageal reflux disease without esophagitis; T68.XXXA Hypothermia, initial encounter; Z68.29 Body mass index [BMI] 29.0-29.9, adult; Z91.018 Allergy to other foods; Z74.01 Bed confinement status; Z99.2 Dependence on renal dialysis; Z91.15 Patient's noncompliance with renal dialysis; Z90.710 Acquired absence of both cervix and uterus; Z87.441 Personal history of nephrotic syndrome; Z86.73 Personal history of transient ischemic attack (TIA), and cerebral infarction without residual deficits; Z85.6 Personal history of leukemia; Z82.3 Family history of stroke; Z83.3 Family history of diabetes mellitus
CPT/HCPCS: 36415; 36558; 36600; 71045; 76770; 77001; 80048; 80053; 80061; 81001; 82040; 82330; 82435; 82550; 82553; 82565; 82575; 82607; 82728; 82746; 82803; 82947; 82948; 83036; 83540; 83550; 83605; 83735; 83874; 84100; 84132; 84156; 84295; 84443; 84484; 84520; 84550; 85014; 85018; 85025; 85027; 85610; 85730; 86701; 86704; 86706; 86850; 86900; 86901; 86922; 87340; 87390; 87520; 90935; 93306; 93971; 97039; C1750; J0360; J0885; J1265; J1644; J1756; J1815; J1940; J2543; J3370; J3490; J7030; J7070; J7510; P9016

== ENCOUNTER 2019-02-05 11:48 | Inpatient (IN) | payer MEDICARE | END 2019-02-11 17:30 | LOC: EDH 11:48 → 2CH 02-06 03:31 → 4BH 02-07 17:04 → 4CH 02-07 17:53 → EDHIP 15:37 | PROC: B51W1ZZ Fluoroscopy of Dialysis Shunt/Fistula using Low Osmolar Contrast (ICD-10-PCS; principal; ~2019-02-05) | DX: G93.41 Metabolic encephalopathy (principal); N18.6 End stage renal disease; Z91.15 Patient's noncompliance with renal dialysis; R10.30 Lower abdominal pain, unspecified; Z99.2 Dependence on renal dialysis; E11.22 Type 2 diabetes mellitus with diabetic chronic kidney disease; D72.829 Elevated white blood cell count, unspecified; D64.9 Anemia, unspecified ==